=== PATIENT | male | born 1990 | race African-American/Black ===

== ENCOUNTER 2018-04-28 14:59 | Emergency (ER) | payer SELFPAY ==
[~2018-04-28] VITALS: Ht 185.4 cm; Wt 100.0 kg
[2018-04-28] MEDS ORDERED: IBUPROFEN 400MG TABLET PO ONE (20:30)
[2018-04-28] MEDS ORDERED: TETANUS, DIPHTHERIA, PERTUSSIS VAC/PF 0.5ML (>7YR OLD) IM ONE (20:30)
[2018-04-28 20:55] VITALS: BP 124/74
== END 2018-04-28 20:55 | disposition left against medical advice (07) ==
LOC: ER 14:59
DX: S40.212A Abrasion of left shoulder, initial encounter (principal); X50.0XXA Overexertion from strenuous movement or load, initial encounter; Y93.I9 Activity, other involving external motion; Y92.89 Other specified places as the place of occurrence of the external cause; Y99.8 Other external cause status
CPT/HCPCS: 73030; 90471; 90715; 99284